=== PATIENT | male | born 1960 | race Caucasian/White ===

== ENCOUNTER → 2024-05-13 | Outpatient (CLI) | payer BC ==
--- NOTE | 2024-05-13 16:46 | US ---
EXAMINATION TYPE: US kidneys/renal and bladder DATE OF EXAM: 05/13/2024 COMPARISON: NONE CLINICAL INDICATION: Male, 64 years old with history of N28.1 CYST OF KIDNEY, ACQUIRED; cyst TECHNIQUE: Grayscale imaging of the bilateral kidneys and urinary bladder: FINDINGS: EXAM MEASUREMENTS: Right Kidney: 10.2x5.3x3.1 cm Left Kidney: 11.6x5.4x5.0 cm Right Kidney: cyst: 2.1x2.1x2.6cm Left Kidney: No hydronephrosis or masses seen Bladder: wnl There is no evidence for hydronephrosis at this point in time. No nephrolithiasis is seen. No kapil s are identified. The urinary bladder is anechoic. exam limited by bowel gas IMPRESSION: 1. No obstructive uropathy or renal contrast. 2. Right renal cortical cysts with a simple appearance. No follow-up recommended. [facility], , 05/13/2024 4:44 PM
== END | disposition home or self-care (01) ==
LOC: RADUSWWP 13:19
PROVIDERS: ATTEND Family Medicine
DX: N28.1 Cyst of kidney, acquired (principal)
CPT/HCPCS: 76770